=== PATIENT | male | born 1955 | race Caucasian/White ===

== ENCOUNTER 2017-04-07 11:23 | Inpatient (IN) | payer BC ==
[2017-04-07] MEDS ORDERED: MECLIZINE 12.5 MG TAB PO STA (12:05)
[2017-04-07] MEDS ORDERED: SODIUM CHLORIDE 0.9% 1,000 ML IV STA (12:05)
--- NOTE | 2017-04-07 12:08 | ED ---
General Adult HPI - General Chief complaint: Weakness Stated complaint: Weakness Time Seen by Provider: 04/07/17 11:57 Source: patient, RN notes reviewed Mode of arrival: ambulatory Limitations: no limitations - History of Present Illness Initial comments: Patient 61-year-old male no significant past medical history presents emergency room today with chief complaint feeling lightheaded or dizzy at times over the last week. He does not that is gone to the clinic for this 30 mL had labs obtained. He states this is unusual for him was never had symptoms like this in the past. States he does not drink much water does drink coffee or throughout the day. 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 States he noticed some numbness tingling sensation to the left side, to the hand to the fingertips. He states he felt a little dizzy. He denies any headache. He states currently he is not having any symptoms but they seem to come and go as the day goes on. He states seems to be worse when he gets up to try to move around he feels dizzy. He states that at times it has numbness and tingling to his fingertips. Patient denies any recent fever, chills, shortness of breath, chest pain, back pain, abdominal pain, nausea or vomiting, numbness or tingling, dysuria or hematuria, constipation or diarrhea, headaches or visual changes, or any other complaints. - Related Data Home Medications Medication Instructions Recorded Confirmed Aspirin EC [Ecotrin Low Dose] 81 mg PO DAILY 04/07/17 04/07/17 Allergies Allergy/AdvReac Type Severity Reaction Status Date / Time No Known Allergies Allergy Verified 04/07/17 12:01 Review of Systems ROS Statement: Those systems with pertinent positive or pertinent negative responses have been documented in the HPI. ROS Other: All systems not noted in ROS Statement are negative. Past Medical History Past Medical History: No Reported History History of Any Multi-Drug Resistant Organisms: None Reported Additional Past Surgical History / Comment(s): Colonoscopy with polyp removal Past Psychological History: No Psychological Hx Reported Smoking Status: Current every day smoker Past Alcohol Use History: Occasional Past Drug Use History: None Reported General Exam - General Exam Comments Initial Comments: General: The patient is awake and alert, in no distress, and does not appear acutely ill. Eye: Pupils are equal, round and reactive to light, extra-ocular movements are intact. No nystagmus. There is normal conjunctiva bilaterally. No signs of icterus. Ears, nose, mouth and throat: There are moist mucous membranes and no oral lesions. Neck: The neck is supple, there is no tenderness or JVD. Cardiovascular: There is a regular rate and rhythm. No murmur, rub or gallop is appreciated. Respiratory: Lungs are clear to auscultation, respirations are non-labored, breath sounds are equal. No wheezes, stridor, rales, or rhonchi. Gastrointestinal: Soft, non-distended, non-tender abdomen without masses or organomegaly noted. There is no rebound or guarding present. No CVA tenderness. Bowel sounds are unremarkable. Musculoskeletal: Normal ROM, no tenderness. Strength 5/5. Sensation intact. Pulses equal bilaterally 2+. Neurological: A&O x 3. CN II-XII intact, There are no obvious motor or sensory deficits. Coordination appears grossly intact. Speech is normal. Skin: Skin is warm and dry and no rashes or lesions are noted. Psychiatric: Cooperative, appropriate mood & affect, normal judgment. Limitations: no limitations Course Vital Signs 04/07/17 04/07/17 11:25 13:02 Temperature 96.9 F L Pulse Rate 76 98 Respiratory 18 18 Rate Blood Pressure 143/75 122/78 O2 Sat by Pulse 97 98 Oximetry EKG Findings - EKG Comments: EKG Findings:: EKG performed at 1221: A 12-lead EKG was performed and interpreted by me as showing the following: Rate is 67, and rhythm is normal sinus. There are normal QRS complexes and normal R-wave progression. ST segments have no elevation or depression, and RI segments appear normal. Medical Decision Making - Medical Decision Making Patient reexamined at this time does admit to some improvement after fluids and meclizine here the emergency room. He does describe some dizziness and lightheadedness symptoms that come and go throughout the last week. He also admits to some numbness tingling sensation to the left side of his face neck and upper extremity. He states this also comes and goes at random over the last week. A CT of the head is negative at this time. His labs been reviewed are unremarkable. Patient will be admitted for further evaluation and consult neurology. - Lab Data Result diagrams: 04/07/17 12:08 04/07/17 12:08 Lab Results 04/07/17 04/07/17 04/07/17 Range/Units 12:08 12:08 12:08 WBC 5.2 (3.8-10.6) k/uL RBC 5.00 (4.30-5.90) m/uL Hgb 15.6 (13.0-17.5) gm/dL Hct 46.3 (39.0-53.0) % MCV 92.8 (80.0-100.0) fL MCH 31.2 (25.0-35.0) pg MCHC 33.6 (31.0-37.0) g/dL RDW 14.7 (11.5-15.5) % Plt Count 343 (150-450) k/uL Neutrophils % 57 % Lymphocytes % 28 % Monocytes % 8 % Eosinophils % 1 % Basophils % 1 % Neutrophils # 3.0 (1.3-7.7) k/uL Lymphocytes # 1.5 (1.0-4.8) k/uL Monocytes # 0.4 (0-1.0) k/uL Eosinophils # 0.1 (0-0.7) k/uL Basophils # 0.0 (0-0.2) k/uL PT (9.0-12.0) sec INR (<1.2) APTT (22.0-30.0) sec Sodium 139 (137-145) mmol/L Potassium 5.0 (3.5-5.1) mmol/L Chloride 103 (98-107) mmol/L Carbon Dioxide 24 (22-30) mmol/L Anion Gap 12 mmol/L BUN 18 (9-20) mg/dL Creatinine 1.06 (0.66-1.25) mg/dL Est GFR (MDRD) Af Amer >60 (>60 ml/min/1.73 sqM) Est GFR (MDRD) Non-Af >60 (>60 ml/min/1.73 sqM) Glucose 94 (74-99) mg/dL Calcium 9.9 (8.4-10.2) mg/dL Total Bilirubin 0.6 (0.2-1.3) mg/dL AST 25 (17-59) U/L ALT 45 (21-72) U/L Alkaline Phosphatase 60 (38-126) U/L Total Creatine Kinase 119 (55-170) U/L CK-MB (CK-2) 0.9 (0.0-2.4) ng/mL CK-MB (CK-2) Rel Index 0.8 Troponin I <0.012 (0.000-0.034) ng/mL Total Protein 8.2 (6.3-8.2) g/dL Albumin 5.0 (3.5-5.0) g/dL Urine Color Urine Appearance (Clear) Urine pH (5.0-8.0) Ur Specific Condon (1.001-1.035) Urine Protein (Negative) Urine Glucose (UA) (Negative) Urine Ketones (Negative) Urine Blood (Negative) Urine Nitrite (Negative) Urine Bilirubin (Negative) Urine Urobilinogen (<2.0) mg/dL Ur Leukocyte Esterase (Negative) Urine RBC (0-5) /hpf Urine WBC (0-5) /hpf Urine Mucus (None) /hpf 04/07/17 04/07/17 Range/Units 12:08 12:08 WBC (3.8-10.6) k/uL RBC (4.30-5.90) m/uL Hgb (13.0-17.5) gm/dL Hct (39.0-53.0) % MCV (80.0-100.0) fL MCH (25.0-35.0) pg MCHC (31.0-37.0) g/dL RDW (11.5-15.5) % Plt Count (150-450) k/uL Neutrophils % % Lymphocytes % % Monocytes % % Eosinophils % % Basophils % % Neutrophils # (1.3-7.7) k/uL Lymphocytes # (1.0-4.8) k/uL Monocytes # (0-1.0) k/uL Eosinophils # (0-0.7) k/uL Basophils # (0-0.2) k/uL PT 9.7 (9.0-12.0) sec INR 0.9 (<1.2) APTT 22.6 (22.0-30.0) sec Sodium (137-145) mmol/L Potassium (3.5-5.1) mmol/L Chloride (98-107) mmol/L Carbon Dioxide (22-30) mmol/L Anion Gap mmol/L BUN (9-20) mg/dL Creatinine (0.66-1.25) mg/dL Est GFR (MDRD) Af Amer (>60 ml/min/1.73 sqM) Est GFR (MDRD) Non-Af (>60 ml/min/1.73 sqM) Glucose (74-99) mg/dL Calcium (8.4-10.2) mg/dL Total Bilirubin (0.2-1.3) mg/dL AST (17-59) U/L ALT (21-72) U/L Alkaline Phosphatase (38-126) U/L Total Creatine Kinase (55-170) U/L CK-MB (CK-2) (0.0-2.4) ng/mL CK-MB (CK-2) Rel Index Troponin I (0.000-0.034) ng/mL Total Protein (6.3-8.2) g/dL Albumin (3.5-5.0) g/dL Urine Color Yellow Urine Appearance Clear (Clear) Urine pH 5.5 (5.0-8.0) Ur Specific Condon 1.014 (1.001-1.035) Urine Protein Negative (Negative) Urine Glucose (UA) Negative (Negative) Urine Ketones Negative (Negative) Urine Blood Trace H (Negative) Urine Nitrite Negative (Negative) Urine Bilirubin Negative (Negative) Urine Urobilinogen <2.0 (<2.0) mg/dL Ur Leukocyte Esterase Negative (Negative) Urine RBC 2 (0-5) /hpf Urine WBC 1 (0-5) /hpf Urine Mucus Rare H (None) /hpf Disposition Clinical Impression: Paresthesia, Dizziness Disposition: ADMITTED IP TO THIS HOSP Condition: Undetermined Referrals: Tala Chen MD [Primary Care Provider] - 1-2 days Time of Disposition: 13:44
[2017-04-07 12:30] LABS: Basophils % (A) 1 %; CH 31.7; CHCM 34.4; Eosinophils # (A) 0.1 k/uL (0-0.7); Eosinophils % (A) 1 %; HCT 46.3 % (39.0-53.0); HDW 2.28; HGB 15.6 gm/dL (13.0-17.5); Luc % (Auto) 4; Lymphocytes # (A) 1.5 k/uL (1.0-4.8); Lymphocytes % (A) 28 %; MCH 31.2 pg (25.0-35.0); MCHC 33.6 g/dL (31.0-37.0); MCV 92.8 fL (80.0-100.0); Mean Platelet Volume 7.3; Monocytes # (A) 0.4 k/uL (0-1.0); Monocytes % (A) 8 %; Neutrophils % (A) 57 %; RDW 14.7 % (11.5-15.5); WBC 5.2 k/uL (3.8-10.6)
[2017-04-07 12:44] LABS: INR 0.9 (<1.2); Partial Thromboplastin Time 22.6 sec (22.0-30.0); Prothrombin Time 9.7 sec (9.0-12.0)
[2017-04-07 12:45] LABS: ALT 45 U/L (21-72); AST 25 U/L (17-59); Alkaline Phosphatase 60 U/L (38-126); Anion Gap 12 mmol/L; Blood Urea Nitrogen 18 mg/dL (9-20); Calcium 9.9 mg/dL (8.4-10.2); Carbon Dioxide 24 mmol/L (22-30); Chloride 103 mmol/L (98-107); Glucose 94 mg/dL (74-99); Non-African American GFR(MDRD) >60 (>60 ml/min/1.73 sqM); Sodium 139 mmol/L (137-145); Total Bilirubin 0.6 mg/dL (0.2-1.3); Total Protein 8.2 g/dL (6.3-8.2)
[2017-04-07 12:51] LABS: Creatine Kinase 119 U/L (55-170)
[2017-04-07 12:59] LABS: Appearance,Urine Clear (Clear); Bilirubin,Urine Negative (Negative); Glucose,Urine (UA) Negative (Negative); Ketones,Urine Negative (Negative); Leukocyte Esterase,Urine Negative (Negative); Mucus,Urine Rare /hpf; Nitrite,Urine Negative (Negative); PH, Urine 5.5 (5.0-8.0); Particle Count 781; Protein,Urine Negative (Negative); RBC,Urine 2 /hpf (0-5); Specific Gravity,Urine 1.014 (1.001-1.035); UA Billing (MACRO vs. MICRO) MICRO; Urobilinogen,Urine <2.0 mg/dL (<2.0); WBC,Urine 1 /hpf (0-5)
[2017-04-07 13:04] LABS: Creatine Kinase MB 0.9 ng/mL (0.0-2.4); Troponin I <0.012 ng/mL (0.000-0.034)
--- NOTE | 2017-04-07 13:16 | CT ---
EXAMINATION TYPE: CT brain wo con DATE OF EXAM: 04/07/2017 COMPARISON: NONE HISTORY: Patient complains of visual disturbance, weakness, and poor balance. CT DLP: 809.[address] of the brain was performed. The ventricles, basal cisterns and sulci overlying the cerebral convexities demonstrate mild enlargem ent. There is no evidence for intracranial hemorrhage or sulcal effacement. There is decreased attenuation about the periventricular white matter and deep white matter of both c erebral hemispheres, compatible with chronic small vessel ischemia. Differential diagnosis does inclu de demyelination. No mass effects are seen.No midline shift. Osseous calvarium is intact. If symptoms persist consider MRI. IMPRESSION: 1. Age related atrophic and chronic small vessel ischemic change without acute intracranial process s een at this time.
--- NOTE | 2017-04-07 13:25 | XR ---
EXAMINATION TYPE: XR chest 2V DATE OF EXAM: 04/07/2017 COMPARISON: NONE HISTORY: Shortness of breath TECHNIQUE: Frontal and lateral views of the chest are obtained. FINDINGS: Scattered senescent parenchymal changes noted. Hyperinflation compatible with COPD. No evidence for infiltrate. No evidence for atelectasis. Heart size is stable. Mediastinal structures are stable and grossly unremarkable. No evidence for hilar prominence. Degenerative changes dorsal spine. IMPRESSION: 1. No evidence for acute pulmonary disease.
[2017-04-07] MEDS ORDERED: ASPIRIN 325 MG TAB PO STA (13:45)
[2017-04-07] MEDS: SODIUM CHLORIDE 0.9% 1,000 ML IV SCH (14:06)
[2017-04-07] MEDS: NICOTINE 14MG/24HR PATCH TRANSDERM SCH (17:15)
--- NOTE | 2017-04-07 17:20 | US ---
EXAMINATION TYPE: US carotid duplex BILAT DATE OF EXAM: 04/07/2017 COMPARISON: NONE CLINICAL HISTORY: Stenosis. EXAM MEASUREMENTS: RIGHT: Peak Systolic Velocity (PSV) cm/sec ----- Right CCA: 110.1 ----- Right ICA: 79.0 ----- Right ECA: 108.0 ICA/CCA ratio: 0.7 RIGHT: End Diastole cm/sec ----- Right CCA: 27.4 ----- Right ICA: 26.3 ----- Right ECA: 23.4 LEFT: Peak Systolic Velocity (PSV) cm/sec ----- Left CCA: 110.1 ----- Left ICA: 90.3 ----- Left ECA: 100.0 ICA/CCA ratio: 0.8 LEFT: End Diastole cm/sec ----- Left CCA: 29.4 ----- Left ICA: 33.8 ----- Left ECA: 11.1 VERTEBRALS (direction of flow): Right Vertebral: Antegrade Left Vertebral: Antegrade Mild plaque, no significant velocity elevations. IMPRESSION: The images and measurements suggest close to 25% stenosis in both internal carotid arter ies. There is antegrade flow in the vertebral arteries. Criteria for Assigning % of Stenosis / Diameter reduction (Estimation based on the indirect measurements of the internal carotid artery velocities (ICA PSV). 1. Normal (no stenosis)=ICA PSV < 125 cm/s: ratio < 2.0: ICA EDV<40 cm/s. 2. Less than 50% stenosis=ICA PSV < 125 cm/s: ratio < 2.0: ICA EDV<40 cm/s. 3. 50 to 69% stenosis=ICA PSV of 125 to 230 cm/s: ration 2.0 ? 4.0: ICA EDV 40-100 cm/s. 4. Greater than 70% stenosis to near occlusion= ICA PSV > 230 cm/s: ratio > 4.0: ICA EDV > 100 cm/s. 5. Near occlusion= ICA PSV velocities may be low or undetectable: variable ratio and ICA EDV. 6. Total occlusion=unable to detect flow.
--- NOTE | 2017-04-07 18:48 | P.CNNES ---
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 He went to his doctor and had some tests which were ordered including carotid ultrasound and MRI and he was given aspirin. The patient states that on Wednesday at work he felt some lightheadedness and both hands became tingly so he again saw his doctor. He came to the hospital today because he can continue to experience a sense of dizziness which he describes as a lightheadedness without vertigo. He denies any headache. He denied any new weakness or numbness. He states he just doesn't feel right. He denied any trauma. He denies any speech or swallowing difficulty. He denied any recurrence of visual changes. Came to the hospital today and had a CT of the brain showed age-related changes and chronic small vessel ischemic changes. Review of Systems Constitutional: Denies chills, Denies fever Eyes: denies blurred vision, denies pain Cardiovascular: Denies chest pain, Denies shortness of breath Respiratory: Denies cough Gastrointestinal: Denies abdominal pain, Denies diarrhea, Denies nausea, Denies vomiting Musculoskeletal: Denies myalgias Integumentary: Denies pruritus, Denies rash Neurological: Denies numbness, Denies weakness Psychiatric: Denies anxiety, Denies depression Endocrine: Denies fatigue, Denies weight change Past Medical History Past Medical History: No Reported History History of Any Multi-Drug Resistant Organisms: None Reported Additional Past Surgical History / Comment(s): Colonoscopy with polyp removal Past Anesthesia/Blood Transfusion Reactions: No Reported Reaction Past Psychological History: No Psychological Hx Reported Smoking Status: Current every day smoker Past Alcohol Use History: Occasional Past Drug Use History: None Reported - Past Family History Father Family Medical History: Dementia Mother Family Medical History: Cancer, Coronary Artery Disease (CAD) Additional Family Medical History / Comment(s): colon cancer Medications and Allergies Home Medications Medication Instructions Recorded Confirmed Type No Known Home Medications [No 04/07/17 04/07/17 History Known Home Medications] Allergies Allergy/AdvReac Type Severity Reaction Status Date / Time No Known Allergies Allergy Verified 04/07/17 12:01 Physical Examination - Vital Signs Vital Signs: Vital Signs Temp Pulse Pulse Resp BP BP Pulse Ox 04/07/17 15:45 97.5 F L 54 L 121/68 97 04/07/17 14:24 98.1 F 54 L 18 118/73 98 04/07/17 13:02 98 18 122/78 98 04/07/17 11:25 96.9 F L 76 18 143/75 97 Intake and Output 04/07/17 04/07/17 04/07/17 06:59 14:59 22:59 Intake Total 200 Output Total 500 Balance -300 Intake: Oral 200 Output: Urine 500 Other: Weight 83.915 kg Patient Weight 04/08/17 06:59 Weight 83.915 kg - Constitutional General appearance: average body habitus - EENT EENT: PERRL, hearing intact, vision intact - Respiratory Respiratory: lungs clear - Cardiovascular Cardiovascular: regular rate, normal S1, normal S2 Extremities: no peripheral edema bilaterally - Integumentary Integumentary: normal - Neurologic He was awake alert and oriented he answered questions appropriately there is no a aphasia or dysarthria. Cranial nerve examination: PERRL, EOMI, V1/V2/V3 grossly intact, face symmetric , tongue midline Speech examination: intact Sensorimotor examination: intact Detailed motor examination: grossly full strength in all extremities Detailed sensory examination: intact Reflex and gait examination: intact - Musculoskeletal Musculoskeletal: erythematous joints - Psychiatric Psychiatric: mood/affect appropriate Results - Laboratory Findings CBC and BMP: 04/07/17 12:08 04/07/17 12:08 Abnormal Lab Findings: Abnormal Labs 04/07/17 12:08 Urine Blood Trace H Urine Mucus Rare H Assessment and Plan (1) TIA (transient ischemic attack) Status: Acute Code(s): G45.9 - TRANSIENT CEREBRAL ISCHEMIC ATTACK, UNSPECIFIED Plan: The patient is a 61-year-old man with history of episode of left visual loss associated with left arm and face numbness lasting for 10 minutes which occurred last week. Since then his been feeling weak and generally dizzy lightheaded without vertigo. His neurologic examination is nonfocal. Recommend TIA workup including carotid ultrasound echocardiogram . He is on aspirin. Recommend x-raying orbits and MRI of the brain.
--- NOTE | 2017-04-07 19:35 | XR ---
EXAMINATION TYPE: XR orbit pre-MRI foreign body DATE OF EXAM: 04/07/2017 COMPARISON: NONE HISTORY: Possible foreign body TECHNIQUE: 3 views FINDINGS: Orbital margins are intact. There is no sign of radiopaque foreign body. IMPRESSION: Normal exam. No sign of a foreign body.
[2017-04-07] MEDS: HEPARIN SODIUM,PORCINE 5,000 UNIT/ML 1 ML VIAL SQ SCH (20:09)
[2017-04-08 06:41] LABS: Cholesterol 179 mg/dL (<200); HDL Cholesterol 43 mg/dL (40-60)
[2017-04-08] MEDS: ASPIRIN 325 MG TAB PO SCH (09:00)
[2017-04-08] MEDS: HEPARIN SODIUM,PORCINE 5,000 UNIT/ML 1 ML VIAL SQ SCH ×2 (09:00→20:54)
[2017-04-08] MEDS: NICOTINE 14MG/24HR PATCH TRANSDERM SCH (09:00)
--- NOTE | 2017-04-08 10:53 | ECHOF ---
Referral Reason:Valve Disease MEASUREMENTS -------- HEIGHT: 152.4 cm WEIGHT: 84.4 kg BP: RVIDd: 3.0 cm (< 3.3) IVSd: 1.1 cm (0.6 - 1.1) LVIDd: 4.0 cm (3.9 - 5.3) LVPWd: 1.5 cm (0.6 - 1.1) IVSs: 1.5 cm LVIDs: 2.7 cm LVPWs: 1.1 cm LA Diam: 3.1 cm (2.7 - 3.8) Ao Diam: 4.1 cm (2.0 - 3.7) AV Cusp: 2.3 cm (1.5 - 2.6) LA Diam: 4.4 cm (2.7 - 3.8) MV EXCURSION: 20.824 mm (> 18.000) MV EF SLOPE: 87 mm/s (70 - 150) EPSS: 0.2 cm MV E Gary: 0.58 m/s MV DecT: 294 ms MV A Gary: 0.79 m/s MV E/A Ratio: 0.73 RAP: 5.00 mmHg RVSP: 12.14 mmHg FINDINGS -------- Sinus rhythm. This was a technically adequate study. LV size, wall thickness and systolic function are normal, with an EF greater than 55%. The left ventricular size is normal. The right ventricle is normal in size. The left atrial size is normal. The right atrial size is normal. The aortic valve is trileaflet, and appears structurally normal. No aortic stenosis or regurgitation. Mild mitral regurgitation is present. Mild tricuspid regurgitation present. There is no evidence of pulmonary hypertension. The right ventricular systolic pressure, as measured by Doppler, is 12.14mmHg. There is no pulmonic regurgitation present. The aortic root size is normal. There is no pericardial effusion. CONCLUSIONS -------- 1. LV size, wall thickness and systolic function are normal, with an EF greater than 55%. 2. There is no pericardial effusion. 3. The left ventricular size is normal. 4. The aortic valve is trileaflet, and appears structurally normal. No aortic stenosis or regurgitation. 5. Mild mitral regurgitation is present. 6. Mild tricuspid regurgitation present. 7. There is no evidence of pulmonary hypertension. 8. The right ventricular systolic pressure, as measured by Doppler, is 12.14mmHg. 9. There is no pulmonic regurgitation present. 10. The aortic root size is normal. MESSAGE BROKER DEVELOPER: Danni Garg RDCS
--- NOTE | 2017-04-08 11:18 | P.HPIM ---
History of Present Illness H&P Date: 04/08/17 Chief Complaint: Dizziness This is a 61-year-old gentleman with no significant past medical history who presented to the emergency room with blurred vision and dizziness. Patient said that he's been having intermittent dizziness on and off for a couple of weeks. He said that his dizziness is unrelated to his position. He denies any chest pain or heart palpitation. No headache. He was evaluated by his primary care physician as was scheduled for an MRI in the next week or so. He said he has worked he had blurred vision in his left eye as well as numbness and tingling involving left side of his face and left arm. He presented to the emergency room for further evaluation. Computed tomography scan of the brain was done in the emergency room showed no acute intracranial findings. Patient' s symptoms resolved within minutes after starting. He is very concerned about the recurrence of his symptoms. Review of Systems Review of system: 14 points review of systems were obtained and were negative except to what were mentioned in the HPI. Past Medical History Past Medical History: No Reported History History of Any Multi-Drug Resistant Organisms: None Reported Additional Past Surgical History / Comment(s): Colonoscopy with polyp removal Past Anesthesia/Blood Transfusion Reactions: No Reported Reaction Past Psychological History: No Psychological Hx Reported Smoking Status: Current every day smoker Past Alcohol Use History: Occasional Past Drug Use History: None Reported - Past Family History Father Family Medical History: Dementia Mother Family Medical History: Cancer, Coronary Artery Disease (CAD) Additional Family Medical History / Comment(s): colon cancer Medications and Allergies Home Medications Medication Instructions Recorded Confirmed Type No Known Home Medications [No 04/07/17 04/07/17 History Known Home Medications] Allergies Allergy/AdvReac Type Severity Reaction Status Date / Time No Known Allergies Allergy Verified 04/07/17 12:01 Physical Exam Vitals: Vital Signs Temp Pulse Pulse Resp BP BP Pulse Ox 04/08/17 08:00 97.5 F L 66 20 104/63 97 04/08/17 04:00 97.5 F L 61 18 101/72 94 L 04/08/17 00:00 98.8 F 64 18 100/60 92 L 04/07/17 20:00 64 18 100/59 94 L 04/07/17 15:45 97.5 F L 54 L 121/68 97 04/07/17 14:24 98.1 F 54 L 18 118/73 98 04/07/17 13:02 98 18 122/78 98 04/07/17 11:25 96.9 F L 76 18 143/75 97 Intake and Output 04/07/17 04/08/17 04/08/17 22:59 06:59 14:59 Intake Total 200 600 Output Total 1000 1100 600 Balance -800 -1100 0 Intake: Oral 200 600 Output: Urine 1000 1100 600 Other: # Voids 1 2 1 # Bowel Movements 0 Weight 84.5 kg General: The patient is awake and alert, in no distress Eye: there is normal conjunctiva bilaterally. Neck: The neck is supple, there is no JVD. Cardiovascular: Normal S1-S2, no S3-S4, no murmurs. Respiratory: Lungs clear to auscultation bilaterally Gastrointestinal: Abdomen is soft, nontender Musculoskeletal: There is no pedal edema. Neurological:. Speech is normal. Skin: Skin is warm and dry Results CBC & Chem 7: 04/07/17 12:08 04/07/17 12:08 Labs: Abnormal Lab Results - Last 24 Hours (Table) 04/07/17 04/08/17 Range/Units 12:08 06:08 LDL Cholesterol, Calc 122 H (0-99) mg/dL Urine Blood Trace H (Negative) Urine Mucus Rare H (None) /hpf Thrombosis Risk Factor Assmnt - Choose All That Apply Each Factor Represents 1 point: Age 41-60 years Other Risk Factors: No Thrombosis Risk Factor Assessment Total Risk Factor Score: 1 Thrombosis Risk Factor Assessment Level: Low Risk Assessment and Plan Plan: 1. Suspected TIA: Patient was seen and evaluated by neurology. MRI scheduled for today. Computed tomography scan of the brain showed no acute intracranial findings. Chronic small vessel ischemic changes noted. 2. Tobacco abuse: Counseled to quit. Currently on nicotine patch. 3. No known medical history otherwise This is a 61-year-old gentleman who presented to the hospital with recurrence episodes of dizziness, blurred vision in the left eye, and numbness involving left side of his face and left arm. Computed tomography scan of the brain showed evidence of some chronic small vessel ischemic disease with no acute intracranial findings. MRI scheduled for today. Carotid Doppler showed no hemodynamically significant stenosis. Echocardiogram showed preserved ejection fraction with no significant valvular abnormalities. No intracardiac source for stroke was identified. Fasting lipid profile showed total cholesterol within acceptable range with LDL around 120. I will start patient on Lipitor 10 mg daily to bring his LDL below 100 and preferably below 70. Will check A1c and thyroid function tests. Appreciate neurology recommendations. Orthostatic blood pressure ordered as well. The repeat lab work in the morning
[2017-04-08] MEDS: SODIUM CHLORIDE 0.9% 1,000 ML IV SCH ×3 (12:47→22:43)
[2017-04-08 12:55] LABS: Hemoglobin A1C 5.6 % (4.2-6.1)
--- NOTE | 2017-04-08 13:00 | MR ---
EXAMINATION TYPE: MR brain wo con DATE OF EXAM: 04/08/2017 COMPARISON: CT 04/07/2017 HISTORY: TIA Standard multiplanar, multisequence MRI departmental protocol Multiplanar, multisequence images of the brain were acquired. Diffusion weighted imaging was performe d. FINDINGS: Craniocervical junction maintained. Sella turcica has a normal appearance. No midline shift. No mass effect. Changes of chronic sinusitis noted. Artifact somewhat limits evaluation of the signal voids within the region of the cavernous sinus. Con cern for vascular abnormality correlate with MRA. Areas of abnormal signal the basal ganglia are noted which are likely in the bases remote microvascul ar ischemia. Numerous areas of abnormal signal are seen scattered throughout the white matter bilater ally which are nonspecific but most typical remote microvascular ischemia. Demyelinating process or o ther etiologies not entirely excluded. IMPRESSION: 1. Nonspecific white matter changes. Differential include remote microvascular ischemia. Demyelinatin g process or other etiologies not excluded. 2. Findings suggest remote lacunar infarct involving the basal ganglia. 3. No acute ischemia.
[2017-04-08] MEDS ORDERED: ATORVASTATIN 10 MG TAB PO SCH (21:00)
[2017-04-08 21:27] VITALS: RESP 18
[2017-04-09] MEDS: SODIUM CHLORIDE 0.9% 1,000 ML IV SCH (05:41)
[2017-04-09 06:54] LABS: Basophils % (A) 1 %; CH 30.8; CHCM 33.1; Eosinophils # (A) 0.1 k/uL (0-0.7); Eosinophils % (A) 3 %; HCT 40.6 % (39.0-53.0); HDW 2.24; HGB 13.6 gm/dL (13.0-17.5); Luc # (Auto) 0.17; Luc % (Auto) 3; Lymphocytes # (A) 1.5 k/uL (1.0-4.8); Lymphocytes % (A) 30 %; MCH 31.5 pg (25.0-35.0); MCHC 33.6 g/dL (31.0-37.0); MCV 93.7 fL (80.0-100.0); Mean Platelet Volume 6.6; Monocytes # (A) 0.5 k/uL (0-1.0); Monocytes % (A) 9 %; Neutrophils # (A) 2.7 k/uL (1.3-7.7); Neutrophils % (A) 54 %; RBC 4.33 m/uL (4.30-5.90); RDW 13.5 % (11.5-15.5); WBC (Perox) 5.67
[2017-04-09 07:15] LABS: Anion Gap 5 mmol/L; Blood Urea Nitrogen 15 mg/dL (9-20); Carbon Dioxide 26 mmol/L (22-30); Chloride 108 mmol/L (98-107); Glucose 86 mg/dL (74-99); Non-African American GFR(MDRD) >60 (>60 ml/min/1.73 sqM); Potassium 4.5 mmol/L (3.5-5.1); Sodium 139 mmol/L (137-145)
[2017-04-09] MEDS: ASPIRIN 325 MG TAB PO SCH (07:47)
[2017-04-09] MEDS: HEPARIN SODIUM,PORCINE 5,000 UNIT/ML 1 ML VIAL SQ SCH (07:48)
[2017-04-09] MEDS: NICOTINE 14MG/24HR PATCH TRANSDERM SCH (07:48)
[2017-04-09 08:07] VITALS: TEMP 96.7
--- NOTE | 2017-04-09 11:05 | P.DS ---
Providers Date of admission: 04/07/17 13:46 Expected date of discharge: 04/09/17 Attending physician: Kori Hopkins Consults: 04/07/17 13:46 Consult Physician Urgent Consulting Provider: Rehan Smith Consult Reason/Comments: Dizziness, paresthesias Do you want consulting provider notified?: Yes Primary care physician: Tala Chen Hospital Course: This is a 61-year-old gentleman with no known past medical history who presented to the hospital with symptoms of dizziness and left-sided face and arm numbness. Patient was evaluated in the emergency room and computed tomography scan of the brain showed no acute intracranial findings. Patient was admitted to the hospital for further evaluation was seen and evaluated by neurology. He was thought to have symptoms of TIA. He underwent MRI of the brain showing nonspecific white matter changes suggestive for remote microvascular ischemia or possibly other demyelinating process. There was also findings suggestive for remote lacunar infarcts involving the basal ganglia. Patient had an echocardiogram of the heart showing preserved ejection fraction and no significant valvular abnormalities. No intracardiac source for stroke identified. Carotid Doppler bilaterally showed no hemodynamically significant stenosis. Patient was counseled extensively about tobacco cessation. He will be started on Lipitor 10 mg at bedtime and aspirin 81 milligrams daily. He'll be discharged home in stable condition. He will follow-up with neurology discuss MRI findings further next week. Patient Condition at Discharge: Fair Plan - Discharge Summary New Discharge Prescriptions: New Aspirin EC [Ecotrin Low Dose] 81 mg PO DAILY #30 tablet. Atorvastatin [Lipitor] 10 mg PO HS #30 tab Nicotine 14Mg/24Hr Patch [Habitrol] 1 patch TRANSDERM DAILY #30 patch Discharge Medication List Aspirin EC [Ecotrin Low Dose] 81 mg PO DAILY #30 tablet. 04/09/17 [Rx] Atorvastatin [Lipitor] 10 mg PO HS #30 tab 04/09/17 [Rx] Nicotine 14Mg/24Hr Patch [Habitrol] 1 patch TRANSDERM DAILY #30 patch 04/09/17 [ Rx] Follow up Appointment(s)/Referral(s): Tala Chen MD [Primary Care Provider] - 1-2 days Sidra Smith MD [STAFF PHYSICIAN] - 1 Week
[2017-04-09 11:54] VITALS: BP 139/96; PULSE 59
== END 2017-04-09 11:57 | disposition home or self-care (01) | DRG 69 ==
LOC: EC 11:23 → 6SEL 13:46
PROVIDERS: ADMIT Internal Medicine; ATTEND Internal Medicine
DX: G45.9 Transient cerebral ischemic attack, unspecified (principal); F17.200 Nicotine dependence, unspecified, uncomplicated; H54.62 Unqualified visual loss, left eye, normal vision right eye; H53.8 Other visual disturbances; R42 Dizziness and giddiness; R20.0 Anesthesia of skin; R53.1 Weakness; Z82.49 Family history of ischemic heart disease and other diseases of the circulatory system; Z80.0 Family history of malignant neoplasm of digestive organs; Z71.6 Tobacco abuse counseling; Z86.010 Personal history of colon polyps; Z81.8 Family history of other mental and behavioral disorders
CPT/HCPCS: 36415; 70030; 70450; 70551; 71020; 80048; 80053; 80061; 81001; 82550; 82553; 83036; 84443; 84484; 85025; 85610; 85730; 93005; 93306; 93880; 96360; 99285

== ENCOUNTER → 2017-05-03 | Outpatient (CLI) | payer BC ==
--- NOTE | 2017-05-03 11:15 | EST ---
EXERCISE STRESS AGE: 61 SEX: M HT: 69" WT: 186 PROTOCOL: Cardiolite Treadmill Stress Test STAGE: IV DURATION OF EXERCISE: 10:19 HEART RATE REST: 59 BLOOD PRESSURE REST: 110/69 MAXIMUM HEART RATE ACHIEVED: 136 MAXIMUM BLOOD PRESSURE: 162/85 85% MPHR: 137 100% MPHR: 161 METS: 11.9 INDICATIONS: Dizziness, blurred vision, chest pain. CLINICAL INFORMATION: Baseline EKG shows sinus rhythm, normal axis, normal intervals. The patient exercised on Gomez protocol for a total of 10 minutes achieving 7 mets, 85% of predicted maximal heart rate without chest pain or diagnostic ST-segment depression. CONCLUSION: 1. Good exercise tolerance. 2. Negative stress test by EKG criteria. 3. Cardiolite portion of this stress test will be reported separately. MMODL / IJN: [id number] /
--- NOTE | 2017-05-03 11:42 | NM ---
EXAMINATION TYPE: NM stress cardiolite complete DATE OF EXAM: 05/03/2017 COMPARISON: NONE HISTORY: 61-year-old male with dizziness, blurred vision, numbness TECHNIQUE: After the intravenous administration of 10.7 mCi Tc 99m Sestamibi - Rest images obtained 45 minutes post injection. The patient exercised using a YELITZA protocol and 1 minute prior to peak exercise was injected with 26.7 mCi Tc 99m Sestamibi - Stress images obtained 10 minutes post injecti on. FINDINGS: Note that the exercise stress was slightly suboptimal as only 84% at the maximal heart rate was achie smith (136 bpm with 85% maximal being 137 bpm). Review of rest images shows decreased perfusion along the mid to apical anteroseptal wall. This appea rs normal on stress images suggesting artifact. Additionally, there is decreased perfusion along the inferior wall which which is also accentuated on the rest images, again, suggesting diaphragmatic att enuation. Estimated left ventricular ejection fraction age 47%. However, this does not appear to be a ccurate based on visualizing contractions on the gated images. There appears to be some augmentation along the inferior wall. TID is calculated at 0.44, likely inaccurate. IMPRESSION: The patient's exercise stress was slightly suboptimal. In addition, suspect prominent diaphragmatic a ttenuation which likely contributes to an erroneous low LVEF of 47%. Further workup as clinically in dicated.
== END | disposition home or self-care (01) ==
LOC: RADNMMAIN 07:48
PROVIDERS: ATTEND Family Medicine
DX: R42 Dizziness and giddiness (principal); R20.0 Anesthesia of skin; H53.8 Other visual disturbances
CPT/HCPCS: 93017; 78452; A9500

== ENCOUNTER → 2018-05-05 | Outpatient (CLI) | payer BC ==
--- NOTE | 2018-05-05 09:16 | BD ---
EXAMINATION TYPE: Axial Bone Density DATE OF EXAM: 05/05/2018 COMPARISON: NONE CLINICAL HISTORY: 62 YR OLD MALE....ICD-10 CODE: N93.8 ABNORMAL FINDINGS ON DX IMAGING Height: 68.5 Weight: 218 FRAX RISK QUESTIONS: Current Tobacco Use: QUIT 1 YR AGO RISK FACTORS HISTORY OF: NO FRACTURES FOR AGES 50 AND OLDER HEIGHT LOSS MEDICATIONS: Additional Medications: ASPIRIN, PLAVIX, LIPITOR, ADVAIR Additional History: HX OF STOKE MAR 2017, EXAM MEASUREMENTS: Bone mineral densitometry was performed using the [employer] System. Bone mineral density as measured about the Lumbar spine is: ----- L1-L4(G/cm2): 1.034 T Score Values are as follows: ----- L1: -1.6 ----- L2: -1.9 ----- L3: -1.0 ----- L4: -0.8 ----- L1-L4: -1.2 Bone mineral density FIRST BONE DENSITY TEST.....BASELINE STUDY Bone mineral density about the R hip (g/cm2): 0.792 Bone mineral density about the L hip (g/cm2): 0.783 T Score values are as follows: -----R Neck: -1.3 -----L Neck: -1.6 -----R Total: -1.7 -----L Total: -1.8 Bone mineral density IS A BASELINE STUDY. FRAX%s: THERE IS A 10.5% CHANCE FOR A MAJOR OSTEOPOROTIC FX AND A 1.9% FOR HIP FX....PROBABILITY OF FX IN 10 YRS TIME IMPRESSION: Osteopenia (T Score between -2.5 and -1) in both hips and low back. There is slightly increased risk of fracture and the patient may be considered for treatment. Re-Screen 2-5 years. NOTE: T-SCORE=SD OF THE YOUNG ADULT MEAN.
== END | disposition home or self-care (01) ==
LOC: RADBDWWP 07:23
PROVIDERS: ATTEND Family Medicine
DX: M85.852 Other specified disorders of bone density and structure, left thigh (principal); M85.851 Other specified disorders of bone density and structure, right thigh; M85.88 Other specified disorders of bone density and structure, other site
CPT/HCPCS: 77080

== ENCOUNTER 2018-10-05 10:24 | Emergency (ER) | payer BC, OTHER ==
[2018-10-05 10:31] VITALS: BP 121/81; PULSE 86; RESP 16; TEMP 97.8
[2018-10-05] MEDS ORDERED: KETOROLAC 60 MG/2 ML VIAL IM STA (10:38)
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
--- NOTE | 2018-10-05 11:11 | XR ---
EXAMINATION TYPE: XR ribs LT w pa chest xray DATE OF EXAM: 10/05/2018 CLINICAL HISTORY: Fall with subsequent left rib pain TECHNIQUE: Single frontal view of the chest is obtained. Frontal and oblique views of the left ribs w ere obtained COMPARISON: None FINDINGS: There is no focal air space opacity, pleural effusion, or pneumothorax seen. The cardiac silhouette size is within normal limits. There is minimal left basilar subsegmental atelectasis and mild multile rubio degenerative changes of the thoracic spine. There is a subtle nondisplaced rib fracture of the posterior lateral margins of ribs 3 on the left. IMPRESSION: Subtle nondisplaced fracture of the posterior lateral margin of rib 3 on the left. Minima l left basilar subsegmental atelectasis.
== END 2018-10-05 11:43 | disposition home or self-care (01) ==
LOC: EC 10:24
DX: S22.42XA Multiple fractures of ribs, left side, initial encounter for closed fracture (principal); E78.5 Hyperlipidemia, unspecified; Z79.02 Long term (current) use of antithrombotics/antiplatelets; Z79.51 Long term (current) use of inhaled steroids; Z79.899 Other long term (current) drug therapy; Z88.5 Allergy status to narcotic agent; Z87.891 Personal history of nicotine dependence; V28.4XXA Motorcycle driver injured in noncollision transport accident in traffic accident, initial encounter; Y92.410 Unspecified street and highway as the place of occurrence of the external cause
CPT/HCPCS: 96372; 99283

== ENCOUNTER 2020-05-03 15:53 | Emergency (ER) | payer OTHER ==
[2020-05-03 16:00] VITALS: RESP 18
--- NOTE | 2020-05-03 16:38 | ED ---
Male Urogenital HPI - General Chief complaint: Abdominal Pain Stated complaint: abdominal pain/bloating, trouble urinating Time Seen by Provider: 05/03/20 16:03 Source: patient, RN notes reviewed, old records reviewed Mode of arrival: ambulatory Limitations: no limitations - History of Present Illness Initial comments: This is a 64-year-old male to the ER for evaluation presents today for evaluation regards to not feeling well. Patient states she isn't occasional abdominal pain cramping lower some blood in his urine. Patient does feels bloated. No nausea vomiting no fevers, patient has not had prior episodes before colonoscopy he has 5 years ago was normal. Patient is noticed with bowels is having some issues with urination but he is able to urinate to completion. Patient's been significantly urgent care twice with no improvement in symptoms MD Complaint: dysuria, other (Abdominal pain) -: days(s) Location: abdomen Radiation: none Severity: mild Severity scale (1-10): 2 Quality: aching, dull Consistency: intermittent Improves with: none Worsens with: none Reports: denies other symptoms - Related Data Home Medications Medication Instructions Recorded Confirmed Atorvastatin [Lipitor] 20 mg PO HS 10/05/18 10/05/18 Cholecalciferol (Vitamin D3) 4,000 unit PO Q48H 10/05/18 10/05/18 [Vitamin D3] Clopidogrel [Plavix] 75 mg PO DAILY 10/05/18 10/05/18 Fluticasone/Umeclidin/Vilanter 1 puff INHALATION RT-HS 10/05/18 10/05/18 [Trelegy Ellipta 100-62.5-25] Ibuprofen [Motrin Ib] 400 mg PO Q8H 10/05/18 10/05/18 Previous Rx's Medication Instructions Recorded Aspirin EC [Ecotrin Low Dose] 81 mg PO DAILY #30 tablet. 04/09/17 Hydrocodone/Acetaminophen [[place] 1 each PO Q4HR PRN #14 tab 10/05/18 5-325] Ibuprofen [Motrin] 600 mg PO Q6HR PRN #20 tab 10/05/18 Allergies Allergy/AdvReac Type Severity Reaction Status Date / Time aspirin Allergy Unknown Verified 05/03/20 16:01 codeine Allergy Unknown Verified 05/03/20 16:01 Review of Systems ROS Statement: Those systems with pertinent positive or pertinent negative responses have been documented in the HPI. ROS Other: All systems not noted in ROS Statement are negative. Past Medical History Past Medical History: CVA/TIA, Hyperlipidemia History of Any Multi-Drug Resistant Organisms: None Reported Additional Past Surgical History / Comment(s): Colonoscopy with polyp removal Past Anesthesia/Blood Transfusion Reactions: No Reported Reaction Past Psychological History: No Psychological Hx Reported Smoking Status: Former smoker Past Alcohol Use History: Occasional Past Drug Use History: None Reported - Past Family History Father Family Medical History: Dementia Mother Family Medical History: Cancer, Coronary Artery Disease (CAD) Additional Family Medical History / Comment(s): colon cancer Brother(s) Family Medical History: Cancer General Exam Limitations: no limitations General appearance: alert, in no apparent distress Head exam: Present: atraumatic, normocephalic, normal inspection Eye exam: Present: normal appearance, PERRL, EOMI. Absent: scleral icterus, conjunctival injection, periorbital swelling ENT exam: Present: normal exam, mucous membranes moist Neck exam: Present: normal inspection. Absent: tenderness, meningismus, lymphadenopathy Respiratory exam: Present: normal lung sounds bilaterally. Absent: respiratory distress, wheezes, rales, rhonchi, stridor Cardiovascular Exam: Present: regular rate, normal rhythm, normal heart sounds. Absent: systolic murmur, diastolic murmur, rubs, gallop, clicks GI/Abdominal exam: Present: soft, normal bowel sounds. Absent: distended, tenderness, guarding, rebound, rigid Extremities exam: Present: normal inspection, full ROM, normal capillary refill. Absent: tenderness, pedal edema, joint swelling, calf tenderness Back exam: Present: normal inspection Neurological exam: Present: alert, oriented X3, CN II-XII intact Psychiatric exam: Present: normal affect, normal mood Skin exam: Present: warm, dry, intact, normal color. Absent: rash Course Vital Signs 05/03/20 05/03/20 05/03/20 15:58 18:42 19:29 Temperature 98.1 F 97.8 F Pulse Rate 89 87 77 Respiratory 18 18 18 Rate Blood Pressure 152/96 143/88 141/89 O2 Sat by Pulse 99 95 95 Oximetry - Reevaluation(s) Reevaluation #1: 05/03/20 17:30 Medical records reviewed Reevaluation #2: 05/03/20 20:14 Patient feeling well urinate without difficulty Reevaluation #3: 05/03/20 20:14 Patient informed results and questions answered, feels good for discharge Medical Decision Making - Medical Decision Making 64 male DF for evaluation patient Abdominal pain and difficulty to urinate was blood all symptoms are moderate moderately resolved here in the ER, urinalysis is cleaned CT are negative. - Lab Data Result diagrams: 05/03/20 17:21 05/03/20 17:21 Lab Results 05/03/20 05/03/20 05/03/20 Range/Units 17:21 17:21 17:21 WBC 6.1 (3.8-10.6) k/uL RBC 4.69 (4.30-5.90) m/uL Hgb 14.2 (13.0-17.5) gm/dL Hct 43.6 (39.0-53.0) % MCV 92.9 (80.0-100.0) fL MCH 30.3 (25.0-35.0) pg MCHC 32.6 (31.0-37.0) g/dL RDW 13.3 (11.5-15.5) % Plt Count 344 (150-450) k/uL Neutrophils % 70 % Lymphocytes % 16 % Monocytes % 11 % Eosinophils % 1 % Basophils % 0 % Neutrophils # 4.3 (1.3-7.7) k/uL Lymphocytes # 1.0 (1.0-4.8) k/uL Monocytes # 0.6 (0-1.0) k/uL Eosinophils # 0.1 (0-0.7) k/uL Basophils # 0.0 (0-0.2) k/uL Sodium 133 L (137-145) mmol/L Potassium 4.2 (3.5-5.1) mmol/L Chloride 101 (98-107) mmol/L Carbon Dioxide 23 (22-30) mmol/L Anion Gap 9 mmol/L BUN 15 (9-20) mg/dL Creatinine 1.05 (0.66-1.25) mg/dL Est GFR (CKD-EPI)AfAm 88 (>60 ml/min/1.73 sqM) Est GFR (CKD-EPI)NonAf 76 (>60 ml/min/1.73 sqM) Glucose 89 (74-99) mg/dL Plasma Lactic Acid Allen 1.3 (0.7-2.0) mmol/L Calcium 9.6 (8.4-10.2) mg/dL Phosphorus 3.9 (2.5-4.5) mg/dL Magnesium 2.0 (1.6-2.3) mg/dL Total Bilirubin 1.0 (0.2-1.3) mg/dL AST 81 H (17-59) U/L ALT 62 H (4-49) U/L Alkaline Phosphatase 87 (38-126) U/L Troponin I (0.000-0.034) ng/mL Total Protein 7.4 (6.3-8.2) g/dL Albumin 4.7 (3.5-5.0) g/dL Urine Color Urine Appearance (Clear) Urine pH (5.0-8.0) Ur Specific [place] (1.001-1.035) Urine Protein (Negative) Urine Glucose (UA) (Negative) Urine Ketones (Negative) Urine Blood (Negative) Urine Nitrite (Negative) Urine Bilirubin (Negative) Urine Urobilinogen (<2.0) mg/dL Ur Leukocyte Esterase (Negative) Urine RBC (0-5) /hpf 05/03/20 05/03/20 Range/Units 17:21 18:35 WBC (3.8-10.6) k/uL RBC (4.30-5.90) m/uL Hgb (13.0-17.5) gm/dL Hct (39.0-53.0) % MCV (80.0-100.0) fL MCH (25.0-35.0) pg MCHC (31.0-37.0) g/dL RDW (11.5-15.5) % Plt Count (150-450) k/uL Neutrophils % % Lymphocytes % % Monocytes % % Eosinophils % % Basophils % % Neutrophils # (1.3-7.7) k/uL Lymphocytes # (1.0-4.8) k/uL Monocytes # (0-1.0) k/uL Eosinophils # (0-0.7) k/uL Basophils # (0-0.2) k/uL Sodium (137-145) mmol/L Potassium (3.5-5.1) mmol/L Chloride (98-107) mmol/L Carbon Dioxide (22-30) mmol/L Anion Gap mmol/L BUN (9-20) mg/dL Creatinine (0.66-1.25) mg/dL Est GFR (CKD-EPI)AfAm (>60 ml/min/1.73 sqM) Est GFR (CKD-EPI)NonAf (>60 ml/min/1.73 sqM) Glucose (74-99) mg/dL Plasma Lactic Acid Allen (0.7-2.0) mmol/L Calcium (8.4-10.2) mg/dL Phosphorus (2.5-4.5) mg/dL Magnesium (1.6-2.3) mg/dL Total Bilirubin (0.2-1.3) mg/dL AST (17-59) U/L ALT (4-49) U/L Alkaline Phosphatase (38-126) U/L Troponin I <0.012 (0.000-0.034) ng/mL Total Protein (6.3-8.2) g/dL Albumin (3.5-5.0) g/dL Urine Color Colorless Urine Appearance Clear (Clear) Urine pH 5.5 (5.0-8.0) Ur Specific [place] 1.004 (1.001-1.035) Urine Protein Negative (Negative) Urine Glucose (UA) Negative (Negative) Urine Ketones 2+ H (Negative) Urine Blood Small H (Negative) Urine Nitrite Negative (Negative) Urine Bilirubin Negative (Negative) Urine Urobilinogen <2.0 (<2.0) mg/dL Ur Leukocyte Esterase Negative (Negative) Urine RBC <1 (0-5) /hpf - EKG Data -: EKG Interpreted by Me (EKG shows sinus rhythm of 65 NH 188 QRS 94 QTC 441) - Radiology Data Radiology results: report reviewed (CT of the abdomen Head and pelvis and ultrasound are negative), image reviewed Disposition Clinical Impression: Abdominal pain Disposition: HOME SELF-CARE Condition: Good Instructions (If sedation given, give patient instructions): Abdominal Pain (ED) Is patient prescribed a controlled substance at d/c from ED?: No Referrals: Tala Chen MD [Primary Care Provider] - 1-2 days
[2020-05-03] MEDS ORDERED: SODIUM CHLORIDE 0.9% 1,000 ML IV STA ×2 (16:56→19:03)
[2020-05-03 17:44] LABS: Basophils % (A) 0 %; Eosinophils # (A) 0.1 k/uL (0-0.7); Eosinophils % (A) 1 %; HCT 43.6 % (39.0-53.0); HGB 14.2 gm/dL (13.0-17.5); Lymphocytes % (A) 16 %; MCH 30.3 pg (25.0-35.0); MCHC 32.6 g/dL (31.0-37.0); MCV 92.9 fL (80.0-100.0); Mean Platelet Volume 6.8; Monocytes # (A) 0.6 k/uL (0-1.0); Monocytes % (A) 11 %; Neutrophils # (A) 4.3 k/uL (1.3-7.7); Neutrophils % (A) 70 %; Platelet Count 344 k/uL (150-450); RBC 4.69 m/uL (4.30-5.90); RDW 13.3 % (11.5-15.5); WBC 6.1 k/uL (3.8-10.6)
[2020-05-03 17:53] LABS: Albumin 4.7 g/dL (3.5-5.0); Calcium 9.6 mg/dL (8.4-10.2); Phosphorus 3.9 mg/dL (2.5-4.5); Potassium 4.2 mmol/L (3.5-5.1); Total Protein 7.4 g/dL (6.3-8.2)
--- NOTE | 2020-05-03 18:37 | US ---
EXAMINATION TYPE: US renals and bladder DATE OF EXAM: 05/03/2020 COMPARISON: NONE CLINICAL HISTORY: pain. EXAM MEASUREMENTS: Right Kidney: 9.4 x 4.6 x 5.1cm Left Kidney: 9.6 x 5.3 x 4.9cm Right Kidney: No hydronephrosis or masses seen Left Kidney: No hydronephrosis or masses seen Bladder: wnl as seen, not fully distended No evidence of any significant atrophy. IMPRESSION: No sign of renal mass or obstruction.
[2020-05-03 18:44] VITALS: TEMP 97.8
[2020-05-03 19:05] LABS: Appearance,Urine Clear (Clear); Bilirubin,Urine Negative (Negative); Blood,Urine Small (Negative); Color,Urine Colorless; Glucose,Urine (UA) Negative (Negative); Ketones,Urine 2+ (Negative); Leukocyte Esterase,Urine Negative (Negative); Nitrite,Urine Negative (Negative); PH, Urine 5.5 (5.0-8.0); Protein,Urine Negative (Negative); RBC,Urine <1 /hpf (0-5); Specific Gravity,Urine 1.004 (1.001-1.035); Urobilinogen,Urine <2.0 mg/dL (<2.0)
--- NOTE | 2020-05-03 19:38 | CT ---
EXAMINATION TYPE: CT abdomen pelvis w con DATE OF EXAM: 05/03/2020 COMPARISON: None HISTORY: Mid abdominal pain with constipation. CT DLP: 1201.2 mGycm Automated exposure control for dose reduction was used. CONTRAST: Performed with IV Contrast, patient injected with 100 mL of Isovue 300. The lung bases are clear of consolidation. There is minimal subsegmental atelectasis at the lung base s. Heart size is normal. There is no pericardial effusion. Liver shows no focal defect. Pancreas spleen stomach appear intact. Bile ducts are not dilated. Gallb ladder appears normal. There is 3 x 2 similar oval-shaped right adrenal mass. There is 1.5 cm left adrenal mass. These have low attenuation suggestive of benign disease. Kidneys show satisfactory contrast opacification. There is no hydronephrosis. Delayed images show nor mal renal excretion. There is no retroperitoneal adenopathy. Bladder distends smoothly. There is no i nguinal hernia. There is no free fluid in the pelvis. I see no mesenteric edema. There is no ascites or free air. There is no sign of a bowel obstruction. There is no evidence of constipation. Lumbar vertebra have fairly normal alignment. Disc spaces are normal. Posterior elements are intact. There is no compression fracture. Bony pelvis is intact. Hip joints are intact. IMPRESSION: Negative CT scan abdomen and pelvis. Appendix not seen. No sign of appendicitis. No evidence of const ipation.
[2020-05-03 20:25] VITALS: BP 138/86; PULSE 72
== END 2020-05-03 20:24 | disposition home or self-care (01) ==
LOC: EC 15:53
DX: R10.9 Unspecified abdominal pain (principal); E78.5 Hyperlipidemia, unspecified; Z79.899 Other long term (current) drug therapy; Z79.02 Long term (current) use of antithrombotics/antiplatelets; Z79.1 Long term (current) use of non-steroidal anti-inflammatories (NSAID); Z79.51 Long term (current) use of inhaled steroids; Z88.5 Allergy status to narcotic agent; Z88.6 Allergy status to analgesic agent; Z87.891 Personal history of nicotine dependence; Z86.73 Personal history of transient ischemic attack (TIA), and cerebral infarction without residual deficits
CPT/HCPCS: 36415; 93005; 80053; 83605; 83735; 84100; 84484; 85025; 81001; 76770; 74177; 99285; 96360; 96361 ×2; Q9967

== ENCOUNTER → 2022-10-09 | Outpatient (CLI) | payer MEDICARE, BC ==
--- NOTE | 2022-10-09 10:29 | CTL ---
EXAMINATION TYPE: CT Low Dose Lung DATE OF EXAM ORDERED: 10/09/2022 HISTORY: . Lung cancer screening CT DLP: 74.[address] CTDI: 2.2 mGy Automated exposure control for dose reduction was used. SCREENING VISIT: COMPARISON: None TECHNIQUE: Low dose computed tomography scan was performed through the chest at 1 mm thick sections a nd reconstructed images in multiple planes at 1 mm and [address] DIAGNOSTIC QUALITY: Satisfactory FINDINGS: There is a small focal area of subpleural thickening axial image 41 right lung apex laterally. As a b enign appearance. Additional anterior biapical pleural thickening noted. There is a subpleural nodule right lower lobe measuring 2 mm axial image 38 and 39. No focal pneumonia or pleural effusion. No pneumothorax. Mild emphysematous changes are seen. Aorta normal caliber with mild atherosclerotic changes. Heart size is normal. Partial inclusion of a possible right adrenal nodule measuring 2 Hounsfield units. Likely benign but could be related to the upper margin of the right kidney could be correlated with ultrasound. Chronic rib cage deformities are suggest remote trauma. No pathologic adenopathy by noncontrast techn ique. No coronary artery calcification. No significant atherosclerotic change aorta. IMPRESSION: 1. Less than 5 mm pulmonary nodules are have a benign appearance. 2. Mild COPD 3. Indeterminate adrenal lesion is similar to the prior CT scan of the abdomen dated 05/13/2020. Most likely basis of adrenal adenoma. CT LUNG RAD AND CT CHEST RECOMMENDATION: Lung-Rad 2 Benign Appearance or Behavior: Continue annual sc reening with LDCT in 12 months. S Modifier (other clinically significant findings): S
== END | disposition home or self-care (01) ==
LOC: RADCTMAIN 09:03
PROVIDERS: ATTEND Family Medicine
DX: Z12.2 Encounter for screening for malignant neoplasm of respiratory organs (principal); J44.9 Chronic obstructive pulmonary disease, unspecified; R91.8 Other nonspecific abnormal finding of lung field; F17.210 Nicotine dependence, cigarettes, uncomplicated
CPT/HCPCS: 71271

== ENCOUNTER → 2024-08-17 | Outpatient (CLI) | payer MEDICARE, BC ==
--- NOTE | 2024-08-17 09:52 | CTL ---
EXAMINATION TYPE: CT Low Dose Lung DATE OF EXAM: 08/17/2024 9:16 AM COMPARISON: 10/09/2022 CLINICAL INDICATION: Male, 69 years old with history of Z87.891 LUNG CANCER SCREENING; personal hx of nicotine dependence 2ppd X 32 years not current smoker, history of tobacco use. TECHNIQUE: Multiple axial non-contrast scans were obtained from approximately the lung apices through the upper abdomen. Coronal and sagittal reformatted images were obtained. Low dose technique was uti lized. MIP were created on a separate workstation and submitted for review. CT DLP: 115.1 mGycm, Automated exposure control for dose reduction was used. CT Contrast: Contrast used: None Oral contrast used: None FINDINGS: Lack of intravenous contrast and low dose technique limits the evaluation of the vascular and soft ti ssue structures. LUNGS: No evidence of pulmonary fibrosis. No evidence of focal consolidation, pneumothorax or pleural effusion. Centrilobular emphysema changes. Nodules: RUL: None. RML: None. RLL: None. AZRA: None. LLL: None. AIRWAY: Patent and unremarkable. HEART: Size within normal limits. MEDIASTINUM: No gross evidence of adenopathy. VASCULATURE: No aortic aneurysm. MUSCULOSKELETAL: No acute osseous abnormalities multiple left-sided rib injuries which are incomplete ly fused. In increased kyphotic curvature of the spine with similar wedging SOFT TISSUES/LYMPH NODES: Unremarkable. LOWER NECK: No significant findings. UPPER ABDOMEN: Right adrenal nodule measuring 26 8 mm compatible with lipid rich adrenal adenoma. IMPRESSION: 1. No clinically significant pulmonary nodules. 2. Mild emphysema. 3. Right adrenal adenoma. 4. Multiple incompletely healed left-sided rib fractures. CT LUNG RAD AND CT CHEST RECOMMENDATION: Lung-Rad 1 Negative: Continue annual screening with LDCT in 12 months. S Modifier (other clinically significant findings): None Recommend smoking cessation (if current smoker), or continuation of smoking cessation (if prior smoke r). Annual screening for lung cancer with low-dose computed tomography is recommended in adults ages 55 to 77 years who have a 30 pack-year smoking history and currently smoke or have quit within the pa st 15 years. Screening should be discontinued once a person has not smoked for 15 years or develops a health problem that substantially limits life expectancy or the ability or willingness to have curat zhane lung surgery. Lung rads 2021 [email or web address] [facility], , 08/17/2024 9:49 AM
== END | disposition home or self-care (01) ==
LOC: RADCTMAIN 08:53
PROVIDERS: ATTEND Family Medicine
DX: Z12.2 Encounter for screening for malignant neoplasm of respiratory organs (principal); D35.01 Benign neoplasm of right adrenal gland; J43.2 Centrilobular emphysema; Z87.891 Personal history of nicotine dependence
CPT/HCPCS: 71271

== ENCOUNTER 2024-11-13 09:50 | Day surgery (SDC) | payer MEDICARE, BC ==
[2024-11-08 08:57] VITALS: BMI 29.8
[~2024-11-13 09:50] MED LIST: LIDOCAINE 1% (10MG/ML) FOR IV START INTRADERMA PRN
[2024-11-13 10:11] VITALS: TEMP 97.4
[2024-11-13] MEDS: LACTATED RINGERS 1,000 ML IV SCH (10:17)
[2024-11-13] MEDS: IV FLUID CONTINUATION 1,000 ML IV ONE ×3 (10:19→11:43)
[2024-11-13] MEDS ORDERED: PROPOFOL 10 MG/ML 20 ML VIAL IV ONE (11:25)
[2024-11-13 11:48] VITALS: RESP 16
--- NOTE | 2024-11-13 11:51 | P.PCN ---
Date of Procedure: 11/13/24 Preoperative Diagnosis: History of polyp Postoperative Diagnosis: Ascending colon polyp Procedure(s) Performed: Colonoscopy with forcep polypectomy Anesthesia: MAC Surgeon: Mandi Valles Pathology: other (Ascending colon polyp) Condition: stable Disposition: same day Indications for Procedure: 69-year-old male with history of colon polyps presents today for colonoscopy. Risks, benefits and alternatives were presented the patient. All questions answered. Operative Findings: Ascending colon polyp Internal hemorrhoids Description of Procedure: The patient was brought to the endoscopy suite and placed in left lateral decubitus position and adequate sedation was achieved using conscious sedation. Digital rectal exam was performed and mild internal hemorrhoids were palpated. An endoscope was then placed in the rectum and advanced to the cecum as identified by landmarks including the appendiceal orifice and the ileocecal valve. The prep was good. The colonoscope was then slowly withdrawn, examining for any mucosal abnormalities. The cecum, ascending, transverse, descending and sigmoid colon were visualized adequately. There were no large neoplastic lesions noted throughout the colon. A small polyp was noted in the ascending colon. This was removed with forcep polypectomy. No significant evidence of diverticulosis. Hemostasis was maintained. Retroflexion was performed in the rectum and internal hemorrhoids. Excess air was removed, the colonoscope withdrawn and the procedure terminated. The patient was then transferred to the recovery unit in stable condition. Repeat colonoscopy should be performed in 5 years.
[2024-11-13 12:16] VITALS: BP 107/75; PULSE 52
== END 2024-11-13 12:20 | disposition home or self-care (01) ==
LOC: ORWHC2ENDO 09:50
PROVIDERS: ATTEND Surgery
DX: Z12.11 Encounter for screening for malignant neoplasm of colon (principal); D12.2 Benign neoplasm of ascending colon; K64.8 Other hemorrhoids; E78.5 Hyperlipidemia, unspecified; K21.9 Gastro-esophageal reflux disease without esophagitis; Z79.899 Other long term (current) drug therapy; Z87.891 Personal history of nicotine dependence; Z86.0100 Personal history of colon polyps, unspecified; Z86.73 Personal history of transient ischemic attack (TIA), and cerebral infarction without residual deficits; Z88.6 Allergy status to analgesic agent; Z88.5 Allergy status to narcotic agent
CPT/HCPCS: 45380; 88305; J2704